=== PATIENT | female | born 1980 | race African-American/Black ===

== ENCOUNTER 2020-12-17 12:39 | Emergency (ER) | payer MEDICAID, OTHER ==
[~2020-12-17] VITALS: Ht 162.6 cm; Wt 63.5 kg
[~2020-12-17 12:39] MED LIST: PRENATAL VITAMINS
[2020-12-17 13:01] VITALS: BP 146/99
== END 2020-12-17 18:20 | disposition left against medical advice (07) ==
LOC: ER 12:39
DX: R06.02 Shortness of breath (principal); R07.89 Other chest pain; Z53.21 Procedure and treatment not carried out due to patient leaving prior to being seen by health care provider

== ENCOUNTER 2021-12-24 20:25 | Emergency (ER) | payer OTHER ==
[~2021-12-24] VITALS: Ht 162.6 cm; Wt 150.0 kg
[2021-12-24 23:35] LABS: Hemoglobin 10.4 g/dL (12.2-16.2); Nucleated Red Blood Cells % 0.1 %
[2021-12-24 23:37] LABS: Basophils # (auto) 0 10 ^3/uL (0-0.2); Basophils % (auto) 0.5 % (0.0-2.0); Eosinophils # (auto) 0.2 10 ^3/uL (0-0.8); Eosinophils % (auto) 2.2 % (0.0-7.0); Hematocrit 33.2 % (36.0-46.0); Lymphocytes # (auto) 2.7 10 ^3/uL (0.4-5.4); Lymphocytes % (auto) 36.4 % (10.0-50.0); Mean Corpuscular Hgb Conc. 31.3 g/dL (32.0-36.0); Mean Corpuscular Volume 70.1 fL (80.0-100.0); Monocytes # (auto) 0.5 10 ^3/uL (0-1.3); Monocytes % (auto) 6.4 % (0.0-12.0); Neutrophils % (auto) 54.5 % (37.0-80.0); Red Blood Cells 4.73 10^6/uL (4.0-5.20); White Blood Cell 7.4 10^3/uL (4.4-10.8)
[2021-12-24 23:39] LABS: Alanine Aminotransferase 37 U/L (13-56); Albumin 3.4 g/dL (3.4-5.0); Anion Gap 8 (5-15); Aspartate Aminotransferase 20 U/L (15-37); BUN/Creatinine Ratio 11.7; Blood Urea Nitrogen 9 mg/dL (7-18); Carbon Dioxide 23 mmol/L (21-32); Chloride 109 mmol/L (98-107); GFR African American 107 mL/min; GFR Non-African American 89 mL/min; Glucose 94 mg/dL (74-106); Potassium 3.4 mmol/L (3.5-5.1); Sodium 140 mmol/L (136-145)
[2021-12-24 23:42] LABS: Alkaline Phosphatase 119 U/L (45-117); Bilirubin, Total 0.3 mg/dL (0.2-1.0); Red Cell Distribution Width 20.4 % (11.8-14.3); Total Protein 7.4 g/dL (6.4-8.2)
[2021-12-25 01:40] VITALS: BP 164/95
== END 2021-12-25 01:50 | disposition home or self-care (01) ==
LOC: ER 20:25 → EDBD 20:25 → ER 12-25 01:50
DX: R07.89 Other chest pain (principal); I10 Essential (primary) hypertension; Z79.899 Other long term (current) drug therapy
CPT/HCPCS: 36415; 71045; 80053; 83880; 84484; 85025; 93005

== ENCOUNTER 2025-02-05 20:05 | Emergency (ER) | payer MEDICAID, OTHER ==
[~2025-02-05] VITALS: Ht 162.6 cm; Wt 75.0 kg
[2025-02-05 21:08] VITALS: BP 180/120; TEMP 98.3
--- NOTE | 2025-02-05 21:10 | DVH ---
CLINICAL HISTORY: left ankle pain TECHNIQUE: 3 views of the left ankle were obtained. COMPARISON: None FINDINGS: No acute fracture or dislocation is seen. The ankle mortise is intact. No soft tissue abnormality is evident. IMPRESSION: NO ACUTE RADIOGRAPHIC ABNORMALITY OF THE LEFT ANKLE.
[2025-02-05] MEDS ORDERED: ACE3T PO (21:16)
--- NOTE | 2025-02-05 21:17 | ED.PDOC ---
Musculoskeletal HPI Comments 44-year-old female presents to ER with complaints of left ankle pain x1 day. Patient with PMH significant for HTN, reports that she sprained her left ankle in August of this year and has since been experiencing intermittent left ankle pain that got worse x 1 day. She rates her current pain a 6/10 to left ankle without radiation and denies taking any medication for her pain. Patient does presents to ER hypertensive at 188/115, reporting that she did not yet take her high blood pressure medications today and denies any hypertensive symptoms. 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 History Family History Family History: No family hx of Heart wei, No family hx of HTN Social History Smoker: Non-Smoker Alcohol: Occasionally Drugs: Denies Drug Use Lives In: Home Constitutional: denies: chills, diaphoresis, fatigue, fever, malaise, sweats, weakness, others EENTM: denies: blurred vision, double vision, ear bleeding, ear discharge, ear drainage, ear pain, ear ringing, eye pain, eye redness, hearing loss, mouth pain, mouth swelling, nasal discharge, nose bleeding, nose congestion, nose pain, photophobia, tearing, throat pain, throat swelling, voice changes, others Respiratory: denies: cough, hemoptysis, orthopnea, SOB at rest, shortness of breath, SOB with excertion, stridor, wheezing, others Cardiovascular: denies: chest pain, dizzy spells, diaphoresis, Dyspnea on exertion, edema, irregular heart beat, left arm pain, lightheadedness, palpitations, PND, syncope, others Gastrointestinal: denies: abdomen distended, abdominal pain, blood streaked bowels, constipated, diarrhea, dysphagia, difficulty swallowing, hematemesis, melena, nausea, poor appetite, poor fluid intake, rectal bleeding, rectal pain, vomiting, others Genitourinary: denies: abnormal vagina bleeding, burning, dyspareunia, dysuria, flank pain, frequency, hematuria, incontinence, pain, , vagina discharge, urgency, others Neurological: denies: dizziness, fainting, headache, left sided numbness, left sided weakness, numbness, paresthesia, pre-existing deficit, right sided numbness, right sided weakness, seizure, speech problems, tingling, tremors, weakness, others Musculoskeletal: reports: others (As stated in HPI) Integumetry: denies: bruises, change in color, change in hair/nails, dryness, laceration, lesions, lumps, rash, wounds, others Allergic/Immunocompromised: denies: Difficulty Healing, Frequent Infections, Hives, Itching, others Hematologic/Lymphatic: denies: anemia, blood clots, easy bleeding, easy bruising, swollen glands, others Endocrine: denies: excessive hunger, excessive sweating, excessive thirst, excessive urination, flushing, intolerance to cold, intolerance to heat, unexplained weight gain, unexplained weight loss, others Psychiatric: denies: anxiety, bipolar disorder, depression, hopeless, panic disorder, schizophrenia, sleepless, suicidal, others Physical Exam General Appearance: No Apparent Distress HEENT: PERRL/EOMI Neck: Full Range of Motion, Non-Tender, Normal Respiratory: Chest Non-Tender, Lungs Clear, No Accessory Muscle Use, No Respiratory Distress, Normal Breath Sounds Cardiovascular: No Murmur, No Gallop, Regular Rate/Rhythm Breast Exam: Deferred Gastrointestinal: NOT DONE Genitalia: Deferred Pelvic: Deferred Rectal: Deferred Extremities: Normal capillary refill, Normal range of motion Musculoskeletal : Extremity Location: Ankle (TTP noted to left medial malleolus. No skin changes noted. No other TTP to left lower extremity noted. Pulses intact) Neurologic: Alert, janitor and cleaner II-XII nml as Tested, No Motor Deficits, Normal Affect, Normal Mood, No Sensory Deficits Cerebellar Function: Normal Reflexes: Normal Skin: Dry, Normal Color, Warm Peripheral Pulses: 2+ dorsalis pedis (R), 2+ dorsalis pedis (L), 2+ Radial (R), 2+ Radial (L), 2+ Brachial (R), 2+ Brachial (L) Lymphatic: No Adenopathy Was a procedure done? Was a procedure done?: No Sedation Sedation?: No Differential Diagnosis EXT Differential Diagnosis: Cellulitis, Fracture, Dislocation, Neurovascular injury X-Ray, Labs, Meds, VS Vital Signs Date Time Temp Pulse Resp B/P (MAP) Pulse Ox O2 Delivery O2 Flow Rate FiO2 02/05/25 21:25 72 16 96 Room Air* 0 21 02/05/25 21:21 180/120 02/05/25 21:08 98.3 73 16 180/120 (140) 97 98.3 02/05/25 20:07 98.7 84 20 188/115 99 98.7 Current Medications Medications (Trade) Dose Ordered Sig/Chris Route Start Time Stop Time Status Last Admin Clonidine HCl (Catapres Tablet) 0.2 mg ONCE ONCE PO 02/05/25 21:15 02/05/25 21:16 DC 02/05/25 21:21 Acetaminophen/ Hydrocodone Bitart ([place] 5/325MG Tab) 1 tab ONCE ONCE PO 02/05/25 21:15 02/05/25 21:16 DC 02/05/25 21:21 PATIENT: DAWN BOOACCT: [id number]: [id number] : 1980 LOC: ER ROOM / BED: / AGE / SEX: 44 / F ADM STATUS: REG ER SERVICE 35 ORDERING PHYSICIAN: KATHRIN GONZALEZ PROCEDURE(s): LANKL - L ANKLE 3 VIEW REASON: left ankle pain ORDER NUMBER(s): [id number], ACCESSION NUMBER(s): [id number] CLINICAL HISTORY: left ankle pain TECHNIQUE: 3 views of the left ankle were obtained. COMPARISON: None FINDINGS: No acute fracture or dislocation is seen. The ankle mortise is intact. No soft tissue abnormality is evident. IMPRESSION: NO ACUTE RADIOGRAPHIC ABNORMALITY OF THE LEFT ANKLE. ATED BY: GALILEA AYALA MD DICTATED DATE/TIME: 02/05/252107 SIGNED BY: GALILEA AYALA MD SIGNED DATE/TIME: 02/05/252107 CC: Left ankle x-ray reviewed [place] 5/325 mg p.o. ordered Clonidine 0.2 mg p.o. ordered Patient had improvement in symptoms and in no distress prior to discharge Advised to continue blood pressure medications as prescribed Advised to monitor/record blood pressure readings closely at home Advised to follow up with PCP and orthopedics in 1-2 days Patient verbalized understanding and agreeable with current plan of care Advised to return to ER immediately if symptoms worsen Images Reviewed?: Images reviewed and evaluated by me Time of 1ST Reevaluation: 20:54 Reevaluation 1ST: N/A Patient Education/Counseling: Diagnosis, Treatment, Prognosis, Need For Follow Up Family Education/Counseling: No Family Present Departure 1 Departure Time of Disposition: 21:14 Impression: Primary Impression: Chronic pain of left ankle Additional Impression: Poorly-controlled hypertension Disposition: HOME / SELF CARE / HOMELESS Condition: Stable e-Prescriptions Acetaminophen W/ Codeine (Tylenol W/Cod #3) 1 Tab Tb 1 TAB PO Q6HPRN, #10 TAB 0 Refills Prov: KATHRIN GONZALEZ 02/05/25 Discharged With: Friend Critical Care Note Critical Care Time?: No Stability Stability form required: No Heart Score Heart Score: Heart Score Response (Comments) Value History N/A 0 EKG N/A 0 Age N/A 0 Risk Factors N/A 0 Troponin N/A 0 Total 0 KATHRIN GONZALEZ Feb 05, 2025 21:17
[2025-02-05] MEDS: HYDROcodone-ACET 5/325MG TAB PO ONE (21:21)
[2025-02-05 21:25] VITALS: PULSE 72; RESP 16; O2SAT 96
== END 2025-02-05 21:58 | disposition home or self-care (01) ==
LOC: ER 20:05
DX: G89.29 Other chronic pain (principal); M25.572 Pain in left ankle and joints of left foot; I10 Essential (primary) hypertension; Z79.899 Other long term (current) drug therapy
CPT/HCPCS: 73610